=== PATIENT | female | born 1980 | race Caucasian/White ===

== ENCOUNTER → 2018-09-30 15:13 | Outpatient (CLI) | payer OTHER, SELFPAY ==
[2018-10-02 10:03] LABS: HSV 2 IgG < 0.91 index (0.00-0.90)
[2018-10-06 10:59] LABS: HPV Reflexed? NOT INDICATED
--- OUTSIDE RECORDS SUMMARY | 2018-11-16 20:40 | XMS RPT_ITS ---
:1980 Author Organization OH[facility] Care Team Providers Name Role Phone HILDA DAY (MAGGIE) Attending Unavailable VICKY HOWELL Attending Unavailable VICKY HOWELL Attending Unavailable VICKY HOWELL Referring Unavailable RUKHSANA BATISTA (PET RESORT CONCIERGE) Referring Unavailable TOMASA GEORGE Attending Unavailable HILDA DAY (ASSEMBLY MECHANIC) Attending Unavailable Verónica Sifuentes Attending Unavailable PROBLEMS PROBLEMS DATE TYPE CONDITION / CODE ATTENDING STATUS SOURCE 10/15/2018 Unknown N90.89 - Other Verónica Sifuentes Active [facility] specified [facility] disorders of vulva Repository and perineum / N90.89(ICD-10) 07/07/2018 Active Other longterm NA Active [facility] (current[facility] Main therapy / [place] Z79.899(ICD-10) Repository 07/07/2018 Active Abnormal level of NA Active [facility] blood mineral / Clinic Main R79.0(ICD-10) [place] Repository 07/07/2018 Active Encounter for NA Active [facility] screening for lipoid Clinic Main disorders / [place] Z13.220(ICD-10) Repository 06/26/2018 Active Unknown / VICKY HOWELL Active [facility] UNK(Unknown) D Clinic Main [place] Repository PROCEDURES PROCEDURES No Procedure Records FoundRESULTS RESULTS PROGRESS Observed: 10/06/2018 Status: COMPLETED Source: [place] 10:38 AM CLINIC MAIN CAMPUS REPOSITORY HNO ID: [id number] Author: Hilda Schneider) Shay Service: (none) Author Type: Nurse Specialist Type: Progress Notes Filed: 10/06/2018 10:42 AM Note Text: This note was created using [employer]. Subjective Carlota Arriola is a 38 year old woman who presents for follow-up of PDT currently using Vyvanse with good effect. No adverse effects noted. Has currently been taking 10 mg once daily in the morning. Occasionally does forget her dose. Does feel this is helping her concentration at work. Review of Systems Constitutional: Negative for activity change, appetite change, chills, diaphoresis, fatigue, fever and unexpected weight change. Respiratory: Negative for chest tightness, shortness of breath, wheezing and stridor. Cardiovascular: Negative for chest pain and palpitations. Neurological: Negative for dizziness, tremors, weakness, light-headedness and headaches. Psychiatric/Behavioral: Negative for agitation, behavioral problems, decreased concentration and sleep disturbance. The patient is not nervous/anxious. Objective BP 102/72 (BP Site: Left Arm, BP Position: Sitting, BP Cuff Size: Regular Adult) Pulse 72 Resp 16 Wt 57.2 kg (126 lb) Physical Exam Constitutional: She is oriented to person, place, and time. She appears well-developed and well-nourished. HENT: Head: Normocephalic. Eyes: Conjunctivae are normal. Cardiovascular: Normal rate, regular rhythm and normal heart sounds. Exam reveals no gallop and no friction rub. No murmur heard. Pulmonary/Chest: Effort normal and breath sounds normal. Neurological: She is alert and oriented to person, place, and time. Skin: Skin is warm and dry. Psychiatric: She has a normal mood and affect. Her behavior is normal. Judgment and thought content normal. HISTORIES FAMILY HISTORY Problem Relation Age of Onset - other (parathyroidectomy [Other]) Mother hypercalcemia - other (HTN [Other]) Father - other (depression [Other]) Father mild depression - Breast Cancer Maternal Grandmother 79 pagets: dx and 2 weeks later - other (CHF [Other]) Paternal Grandmother - other (parkinsons [Other]) Paternal Grandmother - other (DM II [Other]) Paternal Grandmother - other (Depression [Other]) Paternal Grandmother - Ischemic Heart Disease Paternal Grandfather HI - Heart Maternal Grandfather early 70's - other (mental illness [Other]) Maternal Grandfather - other (depression [Other]) Sister PAST MEDICAL HISTORY Diagnosis Date - ADD (attention deficit disorder) without hyperactivity - Anemia - Hx of migraines 2009 with 2nd aura w/visual changes/aphagia - Shingles 2011 right lower transverse back to abdomen PAST SURGICAL HISTORY Procedure Laterality Date - CHG DELIVERY 2006, 2009, 2012 - TONSILLECTOMY AND ADENOIDECTOMY HX young age Social History Marital status: Spouse name: Years of education: Number of children: Social History Main Topics Smoking status: Never Smoker Smokeless tobacco: Never Used Alcohol use: Yes Comment: occasional couple times per year; holidays. Drug use: No ALLERGIES Allergen Reactions - Percocet [Oxycodone* GI Upset - Wellbutrin [Bupropi* Hives Current Outpatient Prescriptions: Ciclopirox (PENLAC) 8 % solution Apply 1 application to affected area once daily. TO AFFECTED AREA. [START ON 12/05/2018] lisdexamfetamine (VYVANSE) 10 mg capsule Take 1-2 capsules by mouth once daily for 30 days. As directedEarliest Fill Date: 12/05/18 [START ON 11/05/2018] lisdexamfetamine (VYVANSE) 10 mg capsule Take 1-2 capsules by mouth once daily for 30 days. As directedEarliest Fill Date: 11/05/18 lisdexamfetamine (VYVANSE) 10 mg capsule Take 1-2 capsules by mouth once daily for 30 days. As directed No current facility-administered medications for this visit. Assessment and Plan 1. ADD (attention deficit disorder) without hyperactivity - ICD9: 314.00, ICD10: F98.8 Currently doing well currently doing well with once daily dose of 10 mg, no adverse effects noted at this dose. Did feel a bit jittery on the higher dose, 20 mg. Typically taking once a day. Occasional twice daily dosing. Follow-up in 3 months as scheduled. - LISDEXAMFETAMINE 10 MG CAPSULE - LISDEXAMFETAMINE 10 MG CAPSULE - LISDEXAMFETAMINE 10 MG CAPSULE Hilda Day APRN.ASSEMBLY MECHANIC October 06, 2018 CNOV Observed: 10/06/2018 Status: COMPLETED Source: [place] 10:00 AM [facility] MAIN CAMP[facility] REPOSITORY Office Visit (INTMWS) CARLOTA ARRIOLA ([id number]) 1980 F Date Time Provider Department 10/06/18 10:00 AM HILDA DAY ([facility]) INTMWS During your visit today, we recorded the following information about you: Pulse Respiration Blood pressure Weight 72/minute 16/minute 102/72 57.2 kg Hilda Day APRN.CNS 10/06/2018 10:42 AM Signed This note was created using [employer]. Subjective Carlota Arriola is a 38 year old woman who presents for follow-up of PDT currently using Vyvanse with good effect. No adverse effects noted. Has currently been taking 10 mg once daily in the morning. Occasionally does forget her dose. Does feel this is helping her concentration at work. Review of Systems Constitutional: Negative for activity change, appetite change, chills, diaphoresis, fatigue, fever and unexpected weight change. Respiratory: Negative for chest tightness, shortness of breath, wheezing and stridor. Cardiovascular: Negative for chest pain and palpitations. Neurological: Negative for dizziness, tremors, weakness, light- headedness and headaches. Psychiatric/Behavioral: Negative for agitation, behavioral problems, decreased concentration and sleep disturbance. The patient is not nervous/anxious. Objective BP 102/72 (BP Site: Left Arm, BP Position: Sitting, BP Cuff Size: Regular Adult) Pulse 72 Resp 16 Wt 57.2 kg (126 lb) Physical Exam Constitutional: She is oriented to person, place, and time. She appears well-developed and well-nourished. HENT: Head: Normocephalic. Eyes: Conjunctivae are normal. Cardiovascular: Normal rate, regular rhythm and normal heart sounds. Exam reveals no gallop and no friction rub. No murmur heard. Pulmonary/Chest: Effort normal and breath sounds normal. Neurological: She is alert and oriented to person, place, and time. Skin: Skin is warm and dry. Psychiatric: She has a normal mood and affect. Her behavior is normal. Judgment and thought content normal. HISTORIES FAMILY HISTORY Problem Relation Age of Onset - other (parathyroidectomy [Other]) Mother hypercalcemia - other (HTN [Other]) Father - other (depression [Other]) Father mild depression - Breast Cancer Maternal Grandmother 79 pagets: dx and 2 weeks later - other (CHF [Other]) Paternal Grandmother - other (parkinsons [Other]) Paternal Grandmother - other (DM II [Other]) Paternal Grandmother - other (Depression [Other]) Paternal Grandmother - Ischemic Heart Disease Paternal Grandfather HI - Heart Maternal Grandfather early 70's - other (mental illness [Other]) Maternal Grandfather - other (depression [Other]) Sister PAST MEDICAL HISTORY Diagnosis Date - ADD (attention deficit disorder) without hyperactivity - Anemia - Hx of migraines 2009 with 2nd aura w/visual changes/aphagia - Shingles 2011 right lower transverse back to abdomen PAST SURGICAL HISTORY Procedure Laterality Date - CHG DELIVERY 2006, 2009, 2012 - TONSILLECTOMY AND ADENOIDECTOMY HX young age Social History Marital status: Spouse name: Years of education: Number of children: Social History Main Topics Smoking status: Never Smoker Smokeless tobacco: Never Used Alcohol use: Yes Comment: occasional couple times per year; holidays. Drug use: No ALLERGIES Allergen Reactions - Percocet [Oxycodone* GI Upset - Wellbutrin [Bupropi* Hives Current Outpatient Prescriptions: Ciclopirox (PENLAC) 8 % solution Apply 1 application to affected area once daily. TO AFFECTED AREA. [START ON 12/05/2018] lisdexamfetamine (VYVANSE) 10 mg capsule Take 1-2 capsules by mouth once daily for 30 days. As directedEarliest Fill Date: 12/05/18 [START ON 11/05/2018] lisdexamfetamine (VYVANSE) 10 mg capsule Take 1-2 capsules by mouth once daily for 30 days. As directedEarliest Fill Date: 11/05/18 lisdexamfetamine (VYVANSE) 10 mg capsule Take 1-2 capsules by mouth once daily for 30 days. As directed No current facility-administered medications for this visit. Assessment and Plan 1. ADD (attention deficit disorder) without hyperactivity - ICD9: 314.00, ICD10: F98.8 Currently doing well currently doing well with once daily dose of 10 mg, no adverse effects noted at this dose. Did feel a bit jittery on the higher dose, 20 mg. Typically taking once a day. Occasional twice daily dosing. Follow-up in 3 months as scheduled. - LISDEXAMFETAMINE 10 MG CAPSULE - LISDEXAMFETAMINE 10 MG CAPSULE - LISDEXAMFETAMINE 10 MG CAPSULE Hilda Day APRN.ASSEMBLY MECHANIC October 06, 2018 Referring Provider: SELF [200] Allergies As of Date: 10/06/2018 Noted Allergy Reaction PERCOCET (OXYCODONE-ACETAMINOPHEN)11/15/2016 8 - GI Upset WELLBUTRIN (BUPROPION HCL) 12/13/2016 4 - Hives Date Reviewed: 10/06/2018 Reviewed by: Amanda Bills LPN - Fully Assessed Reason for Visit: Medication Follow-up [270] Visit Diagnosis:ADD (attention deficit disorder) without hyperactivity [F98.8] Order(s):Ciclopirox (PENLAC) 8 % solutionApply 1 application to affected area once daily. TO AFFECTED AREA.Disp: 1 BottleRfl: 3 [START ON 12/05/2018] lisdexamfetamine (VYVANSE) 10 mg capsuleTake 1-2 capsules by mouth once daily for 30 days. As directed Earliest Fill Date: 12/05/18Disp: 60 capsuleRfl: 0 [START ON 11/05/2018] lisdexamfetamine (VYVANSE) 10 mg capsuleTake 1-2 capsules by mouth once daily for 30 days. As directed Earliest Fill Date: 11/05/18Disp: 60 capsuleRfl: 0 lisdexamfetamine (VYVANSE) 10 mg capsuleTake 1-2 capsules by mouth once daily for 30 days. As directedDisp: 60 capsuleRfl: 0 Prescriptions as of 10/06/2018 Sig: CICLOPIROX 8 % TOPICAL SOLUTI* Apply 1 application to affect* LISDEXAMFETAMINE 10 MG CAPSULE Take 1-2 capsules by mouth on* LISDEXAMFETAMINE 10 MG CAPSULE Take 1-2 capsules by mouth on* LISDEXAMFETAMINE 10 MG CAPSULE Take 1-2 capsules by mouth on* Problem List As Of Date 10/06/2018 Noted Resolved Anxiety [F41.9] INVALID FOR* Migraines [G43.909] INVALID FOR* ADD (attention deficit disorder) without hypera* Prescriptions ordered this encounter Disp Refills Start End CICLOPIROX 8 % TOPICAL SOLUTION 1 [employer]* 3 10/06/2018 Route: TOPICAL Sig: Apply 1 application to affected area once daily. TO AFFECTED AREA. LISDEXAMFETAMINE 10 MG CAPSULE 60 c* 0 12/05/2018 01/04/2019 Class: Print RX Route: ORAL Sig: Take 1-2 capsules by mouth once daily for 30 days. As directed Earliest Fill Date: 12/05/18 LISDEXAMFETAMINE 10 MG CAPSULE 60 c* 0 11/05/2018 12/05/2018 Class: Print RX Route: ORAL Sig: Take 1-2 capsules by mouth once daily for 30 days. As directed Earliest Fill Date: 11/05/18 LISDEXAMFETAMINE 10 MG CAPSULE 60 c* 0 10/06/2018 11/05/2018 Class: Print RX Route: ORAL Sig: Take 1-2 capsules by mouth once daily for 30 days. As directed Medications Discontinued During This Encounter lisdexamfetamine (VYVANSE) 20 mg cap* 30 c* 0 05/04/2018 10/06/2018 Class: Print RX Route: ORAL Sig: Take 1 capsule by mouth once daily for 30 days. May fill on or after 06/01/2017 Earliest Fill Date: 05/04/18 Disc: Reason for discontinue is not on file. lisdexamfetamine (VYVANSE) 20 mg cap* 30 c* 0 04/03/2018 10/06/2018 Class: Print RX Route: ORAL Sig: Take 1 capsule by mouth once daily for 30 days. Earliest Fill Date: 04/03/18 Disc: Reason for discontinue is not on file. lisdexamfetamine (VYVANSE) 20 mg cap* 30 c* 0 03/03/2018 10/06/2018 Class: Print RX Route: ORAL Sig: Take 1 capsule by mouth once daily for 30 days. Disc: Reason for discontinue is not on file. Ciclopirox (PENLAC) 8 % solution 1 [employer]* 3 09/01/2018 10/06/2018 Route: TOPICAL Sig: Apply 1 application to affected area once daily. TO AFFECTED AREA. Disc: Reason for discontinue is not on file. lisdexamfetamine (VYVANSE) 10 mg cap* 60 c* 0 07/07/2018 10/06/2018 Class: Print RX Route: ORAL Sig: Take 1-2 capsules by mouth once daily for 30 days. As directed Disc: Reason for discontinue is not on file. lisdexamfetamine (VYVANSE) 10 mg cap* 60 c* 0 08/06/2018 10/06/2018 Class: Print RX Route: ORAL Sig: Take 1-2 capsules by mouth once daily for 30 days. As directed Earliest Fill Date: 08/06/18 Disc: Reason for discontinue is not on file. lisdexamfetamine (VYVANSE) 10 mg cap* 60 c* 0 09/05/2018 10/06/2018 Class: Print RX Route: ORAL Sig: Take 1-2 capsules by mouth once daily for 30 days. As directed Earliest Fill Date: 09/05/18 Disc: Reason for discontinue is not on file. Encounter Status:Closed by HILDA MÉNDEZ on 10/06/18 HSV 1 AND 2 IGG Collected: 09/30/2018 Status: F Source: [place] 3:19 PM [facility] REPOSITORY TYPE CODE TESTS RESULT OUT OF RANGE REFERENCE UNITS LAB L3400.1620 0.00-0.90 index High HSV 1 IgG 17.20 Result Comment: Negative <0.91 Equivocal 0.91 - 1.09 Positive >1.09 Note: Negative indicates no antibodies detected to HSV-1. Equivocal may suggest early infection. If clinically appropriate, retest at later date. Positive indicates antibodies detected to HSV-1. LAB L3400.1630 0.00-0.90 index Normal < HSV 2 IgG 0.91 Result Comment: Negative <0.91 Equivocal 0.91 - 1.09 Positive >1.09 Note: Negative indicates no antibodies detected to HSV-2. Equivocal may suggest early infection. If clinically appropriate, retest at later date. Positive indicates antibodies detected to HSV-2. Performed at: - [facility] [address] [id number] [employer] Department Manager: Anthony Ramires PhD, Phone: [phone] Performed By: #### L3400.1610 #### [facility] (refer to report for specific site) refer to report for address and phone number MISCELLANEOUS LAB Collected: 09/30/2018 Status: F Source: [place] PROCEDURE 3:19 PM [facility] REPOSITORY Order Comment: Comments: #[id number] HSV 1 AND 2 IGM, SERUM Test(s) Ordered: #[id number] HSV 1 AND 2 IGM, SERUM TYPE CODE TESTS RESULT OUT OF RANGE REFERENCE UNITS LAB L801.1541 Normal [facility] TEST Result Comment: TEST RESULT LIMITS HSV, IgM I/II Combination 1.46 High Ratio 0.00 - 0.90 Negative <0.91 Equivocal 0.91 - 1.09 Positive >1.09 TESTING PERFORMED AT [facility]. ORIGINAL REPORT ON FILE IN LAB CONTAINS ADDITIONAL TEST SITE INFORMATION. Performed By: #### L801.1541 #### [facility] [address] [place], [address] PAP I-G W/RFX HRHPV Collected: 09/30/2018 Status: F Source: [place] 2:30 PM [facility] REPOSITORY Order Comment: CYTOLOGY INFORMATION: - CLINICAL INFORMATION: - DATE LMP/MENOPAUSE: 09/16/18 LMP - COLLECTION VIAL: Thin Prep Vial - CANOE BUILDER SOURCE: CERVICAL/ENDOCERVICAL - COLLECTION TECHNIQUE: BRUSH/SPATULA Specimen Comment: [id number] Specimen Comment: Source.............Cervix;Endocervix Specimen Comment: LMP / Prev Treat...[id number] Specimen Comment: No. of containers..01 ThinPrep Vial TYPE CODE TESTS RESULT OUT OF RANGE REFERENCE UNITS LAB L7400.0800 . Normal DIAGN Comment Result Comment: NEGATIVE FOR INTRAEPITHELIAL LESION AND MALIGNANCY. LAB L7400.0900 . Normal ADEQ Comment Result Comment: Satisfactory for evaluation. Endocervical and/or squamous metaplastic cells (endocervical component) are present. LAB L7400.1400 . Normal PERFORM Comment Result Comment: Sabiha Gonsales Ruby Developer (ASCP) LAB L7400.2575 . Normal TEST METHOD Comment Result Comment: This liquid based ThinPrep(R) pap test was screened with the use of an image guided system. LAB L7400.2600 . Normal . COMM LAB L7400.2700 . Normal PAPSMR Comment Result Comment: The Pap smear is a screening test designed to aid in the detection of premalignant and malignant conditions of the uterine cervix. It is not a diagnostic procedure and should not be used as the sole means of detecting cervical cancer. Both false-positive and false-negative reports do occur. LAB L7400.2800 . Normal HPV RFLX Comment Result Comment: The HPV DNA reflex criteria were not met with this specimen result therefore, no HPV testing was performed. Performed at: [facility] [address] [id number] [employer] Department Manager: Nicolasa Guerrero MD, Phone: [phone] Performed By: #### L7400.0350 #### [facility] (refer to report for specific site) refer to report for address and phone number Observed: 09/01/2018 Status: F Source: [place] [facility]STAN CUL HAIR SKN 9:59 AM [facility] NLS REPOSITORY Culture Result - No Fungus isolated after 28 days Performed By: #### ACFSC #### [facility] [address] [id number] PROGRESS Observed: 09/01/2018 Status: COMPLETED Source: [place] 9:45 AM [facility] REPOSITORY HNO ID: [id number] Author: Tomasa George Service: (none) Author Type: Physician Type: Progress Notes Filed: 09/01/2018 1:28 PM Note Text: Initial Podiatric Office Visit: Chief Complaint: This 38 year old female who presents for evaluation of right 5th toe HPI Patient presents to clinic for evaluation of right 5th toe One month ago while working, she was experiencing pain of right 5th toe. She presented to urgent care and was informed that she could have bacterial infection of right 5th toe vs gout. She was prescribed keflex. The pain eventually subsided. Last week, the right 5th toenail fell off. She has no pain. She has no open sores. She is here to discuss issues with this right 5th toe. PAIN EVALUATION No data found. No results found for: HBA1C PCP: Vicky Howell MD PAST MEDICAL HISTORY Diagnosis Date - ADD (attention deficit disorder) without hyperactivity - Anemia - Hx of migraines 2009 with 2nd aura w/visual changes/aphagia - Shingles 2011 right lower transverse back to abdomen Current Outpatient Prescriptions: lisdexamfetamine (VYVANSE) 10 mg capsule Take 1-2 capsules by mouth once daily for 30 days. As directed lisdexamfetamine (VYVANSE) 10 mg capsule Take 1-2 capsules by mouth once daily for 30 days. As directedEarliest Fill Date: 08/06/18 [START ON 09/05/2018] lisdexamfetamine (VYVANSE) 10 mg capsule Take 1-2 capsules by mouth once daily for 30 days. As directedEarliest Fill Date: 09/05/18 lisdexamfetamine (VYVANSE) 20 mg capsule Take 1 capsule by mouth once daily for 30 days. lisdexamfetamine (VYVANSE) 20 mg capsule Take 1 capsule by mouth once daily for 30 days.Earliest Fill Date: 04/03/18 lisdexamfetamine (VYVANSE) 20 mg capsule Take 1 capsule by mouth once daily for 30 days. May fill on or after 06/01/2017Earliest Fill Date: 05/04/18 No current facility-administered medications for this visit. ALLERGIES Allergen Reactions - Percocet [Oxycodone* GI Upset - Wellbutrin [Bupropi* Hives PAST SURGICAL HISTORY Procedure Laterality Date - [facility] DELIVERY 2006, 2009, 2012 - TONSILLECTOMY AND ADENOIDECTOMY HX young age FAMILY HISTORY Problem Relation Age of Onset - other (parathyroidectomy [Other]) Mother hypercalcemia - other (HTN [Other]) Father - other (depression [Other]) Father mild depression - Breast Cancer Maternal Grandmother 79 pagets: dx and 2 weeks later - other (CHF [Other]) Paternal Grandmother - other (parkinsons [Other]) Paternal Grandmother - other (DM II [Other]) Paternal Grandmother - other (Depression [Other]) Paternal Grandmother - Ischemic Heart Disease Paternal Grandfather HI - Heart Maternal Grandfather early 70's - other (mental illness [Other]) Maternal Grandfather - other (depression [Other]) Sister Social History Marital status: Spouse name: Years of education: Number of children: Social History Main Topics Smoking status: Never Smoker Smokeless tobacco: Never Used Alcohol use: Yes Comment: occasional couple times per year; holidays. Drug use: No REVIEW OF SYSTEMS GENERAL: Negative for Malaise, significant weight loss, fever RESPIRATORY: Negative for cough, wheezing and shortness of breath CARDIOVASCULAR: Negative for chest pain, leg swelling and palpitations GI: Negative for abdominal discomfort, blood in stools or black stools and change in bowel habits : Negative for dysuria, frequency and incontinence MUSCULOSKELETAL: Negative for joint pain or swelling, back pain, and muscle pain. SKIN: Negative for lesions, rash, and itching. HEMATOLOGY/LYMPHOLOGY Negative for prolonged bleeding, bruising easily, and swollen nodes. ENDOCRINE: Negative for cold or heat intolerance, polyuria, polydipsia and goiter. NEURO: negative Physical Exam: Constitutional: Pt is a well developed 38 year old female who is alert, oriented and cooperative Eyes: Following during examination. No redness or drainage. Respiratory: RR normal and nonlabored. Even breathing. No evidence of distress or shortness of breath. Psychology: Patient is engaged during conversation. Normal affect and mood. Does not appear depressed or anxious during encounter. Vascular: Dorsalis pedis and posterior tibial pulses palpable as b/l Capillary Fill time < 5 seconds to digits 1-5 b/l Skin temperature warm to warm proximal to distal b/l Hair growth present to digits Neurological: intact light touch/epicritic sensation b/l intact protective sensation no significant neurological deficits Dermatological: Nails 1-5 left and 1-4 right appear discolored. Right 5th toenail is avulsed. No signs of infection are present b/l. Webspaces clean and dry 1-4 b/l. Skin appears well hydrated and supple. good color, texture, turgor. No open lesions present. No callosities present. Musculoskeletal/Orthopaedic: Patient has no pain to palpation of b/l feet Foot type is neutral structurally AJ ROM is full with knee extended and flexed 1st MPJ is full when loaded and no pain or crepitus are noted with ROM. MTJ, STJ are full and free of pain and crepitus. +5/5 muscle strength dorsiflexion, plantarflexion, inversion, eversion b/l Flexible hammertoe is noted of b/l 5th toe Radiographs: 3 views right foot ordered September 01, 2018: I have personally reviewed and interpreted these XR myself: No acute fracture ASSESSMENT: (M20.41, M20.42) Hammer toes of both feet (primary encounter diagnosis) (B35.1) Onychomycosis PLAN: 1. History and physical examination performed. 2. XR reviewed with patient and interpreted today 3. Discussed possible source of pain of 5th toe from hammertoe. Hammertoe present to b/l 5th toe, is flexible in presentation. No pain currently. If pain returns, consider toe spacer, wider shoes or even flexor tenotomy to make rectus her toe. 4. A review of the patient's PMH and Podiatric physical exam was completed. We discussed the possible etiologies of discolored, dystrophic, and thickened nails including fungus, yeast, mold as well as in some instances, prior trauma, or mechanical causes such as repetitive microtrauma in shoe gear. We discussed topical medication for discolored toenails which has very low success but no major side effects. We discussed oral medication. Patient will need hepatic testing prior to use. Patient informed of risks associated with Lamisil. We discussed removal of toenails. Patient would like to proceed with [facility]. Nail debridement of left 5th toe and juaquin will be sent 5. F/u prn. TIAGO aWrd Observed: 09/01/2018 Status: COMPLETED Source: [place] 9:25 AM [facility] REPOSITORY Office Visit (PODIWS) CARLOTA ARRIOLA ([id number]) 1980 F Date Time Provider Department 09/01/18 9:25 AM TOMASA GEORGE During your visit today, we recorded the following information about you: Tomasa TIAGO George 09/01/2018 1:28 PM Signed Initial Podiatric Office Visit: Chief Complaint: This 38 year old female who presents for evaluation of right 5th toe HPI Patient presents to clinic for evaluation of right 5th toe One month ago while working, she was experiencing pain of right 5th toe. She presented to urgent care and was informed that she could have bacterial infection of right 5th toe vs gout. She was prescribed keflex. The pain eventually subsided. Last week, the right 5th toenail fell off. She has no pain. She has no open sores. She is here to discuss issues with this right 5th toe. PAIN EVALUATION No data found. No results found for: HBA1C PCP: Vicky Howell MD PAST MEDICAL HISTORY Diagnosis Date - ADD (attention deficit disorder) without hyperactivity - Anemia - Hx of migraines 2009 with 2nd aura w/visual changes/aphagia - Shingles 2011 right lower transverse back to abdomen Current Outpatient Prescriptions: lisdexamfetamine (VYVANSE) 10 mg capsule Take 1-2 capsules by mouth once daily for 30 days. As directed lisdexamfetamine (VYVANSE) 10 mg capsule Take 1-2 capsules by mouth once daily for 30 days. As directedEarliest Fill Date: 08/06/18 [START ON 09/05/2018] lisdexamfetamine (VYVANSE) 10 mg capsule Take 1-2 capsules by mouth once daily for 30 days. As directedEarliest Fill Date: 09/05/18 lisdexamfetamine (VYVANSE) 20 mg capsule Take 1 capsule by mouth once daily for 30 days. lisdexamfetamine (VYVANSE) 20 mg capsule Take 1 capsule by mouth once daily for 30 days.Earliest Fill Date: 04/03/18 lisdexamfetamine (VYVANSE) 20 mg capsule Take 1 capsule by mouth once daily for 30 days. May fill on or after 06/01/2017Earliest Fill Date: 05/04/18 No current facility-administered medications for this visit. ALLERGIES Allergen Reactions - Percocet [Oxycodone* GI Upset - Wellbutrin [Bupropi* Hives PAST SURGICAL HISTORY Procedure Laterality Date - CHG DELIVERY 2006, 2009, 2012 - TONSILLECTOMY AND ADENOIDECTOMY HX young age FAMILY HISTORY Problem Relation Age of Onset - other (parathyroidectomy [Other]) Mother hypercalcemia - other (HTN [Other]) Father - other (depression [Other]) Father mild depression - Breast Cancer Maternal Grandmother 79 pagets: dx and 2 weeks later - other (CHF [Other]) Paternal Grandmother - other (parkinsons [Other]) Paternal Grandmother - other (DM II [Other]) Paternal Grandmother - other (Depression [Other]) Paternal Grandmother - Ischemic Heart Disease Paternal Grandfather HI - Heart Maternal Grandfather early 70's - other (mental illness [Other]) Maternal Grandfather - other (depression [Other]) Sister Social History Marital status: Spouse name: Years of education: Number of children: Social History Main Topics Smoking status: Never Smoker Smokeless tobacco: Never Used Alcohol use: Yes Comment: occasional couple times per year; holidays. Drug use: No REVIEW OF SYSTEMS GENERAL: Negative for Malaise, significant weight loss, fever RESPIRATORY: Negative for cough, wheezing and shortness of breath CARDIOVASCULAR: Negative for chest pain, leg swelling and palpitations GI: Negative for abdominal discomfort, blood in stools or black stools and change in bowel habits : Negative for dysuria, frequency and incontinence MUSCULOSKELETAL: Negative for joint pain or swelling, back pain, and muscle pain. SKIN: Negative for lesions, rash, and itching. HEMATOLOGY/LYMPHOLOGY Negative for prolonged bleeding, bruising easily, and swollen nodes. ENDOCRINE: Negative for cold or heat intolerance, polyuria, polydipsia and goiter. NEURO: negative Physical Exam: Constitutional: Pt is a well developed 38 year old female who is alert, oriented and cooperative Eyes: Following during examination. No redness or drainage. Respiratory: RR normal and nonlabored. Even breathing. No evidence of distress or shortness of breath. Psychology: Patient is engaged during conversation. Normal affect and mood. Does not appear depressed or anxious during encounter. Vascular: Dorsalis pedis and posterior tibial pulses palpable as b/l Capillary Fill time < 5 seconds to digits 1-5 b/l Skin temperature warm to warm proximal to distal b/l Hair growth present to digits Neurological: intact light touch/epicritic sensation b/l intact protective sensation no significant neurological deficits Dermatological: Nails 1-5 left and 1-4 right appear discolored. Right 5th toenail is avulsed. No signs of infection are present b/l. Webspaces clean and dry 1-4 b/l. Skin appears well hydrated and supple. good color, texture, turgor. No open lesions present. No callosities present. Musculoskeletal/Orthopaedic: Patient has no pain to palpation of b/l feet Foot type is neutral structurally AJ ROM is full with knee extended and flexed 1st MPJ is full when loaded and no pain or crepitus are noted with ROM. MTJ, STJ are full and free of pain and crepitus. +5/5 muscle strength dorsiflexion, plantarflexion, inversion, eversion b/l Flexible hammertoe is noted of b/l 5th toe Radiographs: 3 views right foot ordered September 01, 2018: I have personally reviewed and interpreted these XR myself: No acute fracture ASSESSMENT: (M20.41, M20.42) Hammer toes of both feet (primary encounter diagnosis) (B35.1) Onychomycosis PLAN: 1. History and physical examination performed. 2. XR reviewed with patient and interpreted today 3. Discussed possible source of pain of 5th toe from hammertoe. Hammertoe present to b/l 5th toe, is flexible in presentation. No pain currently. If pain returns, consider toe spacer, wider shoes or even flexor tenotomy to make rectus her toe. 4. A review of the patient's PMH and Podiatric physical exam was completed. We discussed the possible etiologies of discolored, dystrophic, and thickened nails including fungus, yeast, mold as well as in some instances, prior trauma, or mechanical causes such as repetitive microtrauma in shoe gear. We discussed topical medication for discolored toenails which has very low success but no major side effects. We discussed oral medication. Patient will need hepatic testing prior to use. Patient informed of risks associated with Lamisil. We discussed removal of toenails. Patient would like to proceed with penlac. Nail debridement of left 5th toe and juaquin will be sent 5. F/u prn. TIAGO Ward RN 09/01/2018 10:06 AM Signed Penlac/Loprox (ciclopirox 8% solution) Nail Lacquer Instructions Apply the medication to toenails each night for 7 nights, making sure to to apply evenly over the entire nail. Allow to dry (about 30 seconds). On the 8th night, remove with rubbing alcohol or nail niuean remover (acetone works best). After removing, apply new coat of medication and repeat process. Full treatment time consists of daily application for about 48 weeks. It may take up to 6 months before you see any visible improvement in your nail(s). If you notice increased redness, itching, burning, blistering, swelling, or oozing; be sure to notify Dr. George's office. If you have any questions, call your pharmacy or Dr. George's office. We will call you with the results of your nail culture Referring Provider: SELF [[id number]] Allergies As of Date: 09/01/2018 Noted Allergy Reaction PERCOCET (OXYCODONE-ACETAMINOPHEN)11/15/2016 8 - GI Upset WELLBUTRIN (BUPROPION HCL) 12/13/2016 4 - Hives Date Reviewed: 09/01/2018 Reviewed by: Eloisa Razo Ma - Fully Assessed Reason for Visit: New Patient [172] right 5th toe pain [Other] Primary Visit Diagnosis:Hammer toes of both feet [M20.41, M20.42] Other Visit Diagnosis:Onychomycosis [B35.1] Order(s):FUNGAL CULTURE HAIR,SKIN,NAILS [[facility]] Order #: [id number] Ciclopirox (PENLAC) 8 % solutionApply 1 application to affected area once daily. TO AFFECTED AREA.Disp: 1 BottleRfl: 3 Prescriptions as of 09/01/2018 Sig: CICLOPIROX 8 % TOPICAL SOLUTI* Apply 1 application to affect* LISDEXAMFETAMINE 10 MG CAPSULE Take 1-2 capsules by mouth on* LISDEXAMFETAMINE 10 MG CAPSULE Take 1-2 capsules by mouth on* LISDEXAMFETAMINE 10 MG CAPSULE Take 1-2 capsules by mouth on* LISDEXAMFETAMINE 20 MG CAPSULE Take 1 capsule by mouth once * LISDEXAMFETAMINE 20 MG CAPSULE Take 1 capsule by mouth once * LISDEXAMFETAMINE 20 MG CAPSULE Take 1 capsule by mouth once * Problem List As Of Date 09/01/2018 Noted Resolved Anxiety [F41.9] INVALID FOR* Migraines [G43.909] INVALID FOR* ADD (attention deficit disorder) without hypera* Other instructions from your clinician: Penlac/Loprox (ciclopirox 8% solution) Nail Lacquer Instructions Apply the medication to toenails each night for 7 nights, making sure to to apply evenly over the entire nail. Allow to dry (about 30 seconds). On the 8th night, remove with rubbing alcohol or nail niuean remover (acetone works best). After removing, apply new coat of medication and repeat process. Full treatment time consists of daily application for about 48 weeks. It may take up to 6 months before you see any visible improvement in your nail(s). If you notice increased redness, itching, burning, blistering, swelling, or oozing; be sure to notify Dr. George's office. If you have any questions, call your pharmacy or Dr. George's office. We will call you with the results of your nail culture Prescriptions ordered this encounter Disp Refills Start End CICLOPIROX 8 % TOPICAL SOLUTION 1 [employer]qu[employer]* 3 09/01/2018 Route: TOPICAL Sig: Apply 1 application to affected area once daily. TO AFFECTED AREA. Disposition: Return if symptoms worsen or fail to improve. Follow-up and Disposition History Recorded Encounter Status:Closed by TOMASA GEORGE DPM on 09/01/18 XR FOOT 3V AP/LAT/OBL Observed: 08/07/2018 Status: F Source: [place] RT 3:45 PM [facility] REPOSITORY * * *Final Report* * * DATE OF EXAM: Aug 07 2018 3:45PM WOX [id number] - XR FOOT 3V AP/LAT/OBL RT / PROCEDURE REASON: Foot pain, right * * * * Physician Interpretation * * * * Right foot-weight bearing History: Right fifth toe injury Findings: Three views of the foot including weight-bearing AP and lateral views were obtained. No fracture bony destruction is noted. Joint spaces appear maintained. Evaluation of the toes is limited by overlap on the lateral radiograph. IMPRESSION: Unremarkable study Telecommunications Network Engineer: GUICHO Transcribe Date/Time: Aug 07 2018 3:48P Dictated by : FILIPE JOLLEY MD This examination was interpreted and the report reviewed and electronically signed by: FILIPE JOLLEY MD on Aug 07 2018 3:50PM EST [id number] PROGRESS Observed: 08/07/2018 Status: COMPLETED Source: [place] 3:35 PM [facility] REPOSITORY HNO ID: [id number] Author: Zaida Cabral (Rt) Yomi Avery Service: (none) Author Type: Proposal Lead Writer Type: Progress Notes Filed: 08/07/2018 3:45 PM Note Text: Radiology Service Progress Note PATIENT NAME: Carlota Arriola DATE OF SERVICE: August 07, 2018 TIME: 3:35 PM PATIENT IDENTITY VERIFICATION COMPLETED USING TWO (2) METHODS: Patient confirmed name verbally and Date of . PATIENT GENDER DATA: Female. status: : No status: NO. PATIENT RELEVANT IMPLANT DATA REVIEWED: Not Applicable RADIOLOGY DEPARTMENT: General X-ray: Exam(s) Completed: Lower Extremity X-Ray(s): Foot, Right: PERIPHERAL IV DATA: Not applicable SIGNED BY: RT Juan Antonio August 07, 2018 3:35 PM PROGRESS Observed: 08/07/2018 Status: COMPLETED Source: [place] 3:34 PM [facility] REPOSITORY HNO ID: [id number] Author: Rukhsana Batista Service: (none) Author Type: Nurse Practitioner Type: Progress Notes Filed: 08/07/2018 4:10 PM Note Text: Subjective The history is provided by the patient. No paraprofessional interpreter was used. HPI Carlota Arriola is a 38 year old female who presents today for CC of right pinky toe pain. Onset/Duration: today Alleviating/Treatment: No medications or treatment today. Aggravating: Pressure on toe Risk factors: No known trauma or injury. H/o nail fungal infection. BP 100/60 Pulse 77 Temp 36.1 ?C (97 ?F) (Left Tympanic) Resp 16 Wt 55.3 kg (122 lb) ALLERGIES Allergen Reactions - Percocet [Oxycodone* GI Upset - Wellbutrin [Bupropi* Hives ACTIVE PROBLEM LIST Anxiety Migraines Add (Attention Deficit Disorder) Without Hyperactivity Family History Problem Relation Age of Onset - other (parathyroidectomy [Other]) Mother hypercalcemia - other (HTN [Other]) Father - other (depression [Other]) Father mild depression - Breast Cancer Maternal Grandmother 79 pagets: dx and 2 weeks later - other (CHF [Other]) Paternal Grandmother - other (parkinsons [Other]) Paternal Grandmother - other (DM II [Other]) Paternal Grandmother - other (Depression [Other]) Paternal Grandmother - Ischemic Heart Disease Paternal Grandfather HI - Heart Maternal Grandfather early 70's - other (mental illness [Other]) Maternal Grandfather - other (depression [Other]) Sister Social History Marital status: Spouse name: Years of education: Number of children: Social History Main Topics Smoking status: Never Smoker Smokeless tobacco: Never Used Alcohol use: Yes Comment: occasional couple times per year; holidays. Drug use: No PAST MEDICAL HISTORY Diagnosis Date - ADD (attention deficit disorder) without hyperactivity - Anemia - Hx of migraines 2009 with 2nd aura w/visual changes/aphagia - Shingles 2011 right lower transverse back to abdomen Review of Systems Constitutional: Negative for chills, fever and malaise/fatigue. Musculoskeletal: Positive for joint pain (right pinky toe). Negative for myalgias. Skin: Negative for rash. Neurological: Negative for tingling and headaches. Objective Physical Exam Constitutional: She is oriented to person, place, and time and well-developed, well-nourished, and in no distress. No distress. HENT: Head: Normocephalic and atraumatic. Eyes: Pupils are equal, round, and reactive to light. Conjunctivae and EOM are normal. Neck: Normal range of motion. Neck supple. Pulmonary/Chest: Effort normal. Musculoskeletal: Right shoulder: She exhibits tenderness, bony tenderness and swelling. She exhibits normal range of motion, no effusion, no crepitus, no deformity, no laceration, no pain, no spasm, normal pulse and normal strength. Right foot: There is tenderness, bony tenderness and swelling. There is normal range of motion, normal capillary refill, no crepitus, no deformity and no laceration. Feet: Neurological: She is alert and oriented to person, place, and time. Skin: Skin is warm and dry. Psychiatric: Affect normal. Nursing note and vitals reviewed. ASSESSMENT/PLAN: 1. Foot pain, right - ICD9: 729.5, ICD10: M79.671 Differential diagnosis paronychia, gout, injury REST: Rest the area as much as possible. ICE: Apply ice for 15 minutes every hour. Do not apply ice directly to the skin. Cover the area with a thin towel or clothing and apply the ice on top of that. ELEVATE: Elevate the area as much as possible to control swelling. See your doctor if not improving Tylenol (generic acetaminophen) 500 mg-2 tabs every 8 hrs. as needed for fever and aches Ibuprofen 600 mg (3-200mg tablets) every 6 hours Keflex 500 mg tid for 7 days Follow up with PCP or Dr. George for any further problems, or ER if suddenly worsening - XR FOOT GENERAL 3V AP/LAT/OBL RT - interpreted by FILIPE JOLLEY MD Findings: Three views of the foot including weight-bearing AP and lateral views were obtained. No fracture bony destruction is noted. Joint spaces appear maintained. Evaluation of the toes is limited by overlap on the lateral radiograph. Impression IMPRESSION: Unremarkable study Diagnosis and treatment plan were discussed and questions were answered to the patient's satisfaction. Pt acknowledged understanding of concepts and follow up plan. Specific signs and symptoms that would indicate the need for higher level of care were discussed in detail warranting prompt ER evaluation. Rukhsana Batista APRN.CNP CNOV Observed: 08/07/2018 Status: COMPLETED Source: [place] 3:15 PM [facility] REPOSITORY Office Visit (WSTR) FLAKOCARLOTA ([id number]) 1980 F Date Time Provider Department 08/07/18 3:15 PM RUKHSANA BATISTA (RIGOBERTO) [facility] During your visit today, we recorded the following information about you: Temperature Pulse Respiration Blood pressure 97 degrees 77/minute 16/minute 100/60 Weight 55.3 kg Rukhsana Batista APRN.CNP 08/07/2018 4:10 PM Signed Subjective The history is provided by the patient. No paraprofessional interpreter was used. HPI Carlota Arriola is a 38 year old female who presents today for CC of right pinky toe pain. Onset/Duration: today Alleviating/Treatment: No medications or treatment today. Aggravating: Pressure on toe Risk factors: No known trauma or injury. H/o nail fungal infection. BP 100/60 Pulse 77 Temp 36.1 ?C (97 ?F) (Left Tympanic) Resp 16 Wt 55.3 kg (122 lb) ALLERGIES Allergen Reactions - Percocet [Oxycodone* GI Upset - Wellbutrin [Bupropi* Hives ACTIVE PROBLEM LIST Anxiety Migraines Add (Attention Deficit Disorder) Without Hyperactivity Family History Problem Relation Age of Onset - other (parathyroidectomy [Other]) Mother hypercalcemia - other (HTN [Other]) Father - other (depression [Other]) Father mild depression - Breast Cancer Maternal Grandmother 79 pagets: dx and 2 weeks later - other (CHF [Other]) Paternal Grandmother - other (parkinsons [Other]) Paternal Grandmother - other (DM II [Other]) Paternal Grandmother - other (Depression [Other]) Paternal Grandmother - Ischemic Heart Disease Paternal Grandfather HI - Heart Maternal Grandfather early 70's - other (mental illness [Other]) Maternal Grandfather - other (depression [Other]) Sister Social History Marital status: Spouse name: Years of education: Number of children: Social History Main Topics Smoking status: Never Smoker Smokeless tobacco: Never Used Alcohol use: Yes Comment: occasional couple times per year; holidays. Drug use: No PAST MEDICAL HISTORY Diagnosis Date - ADD (attention deficit disorder) without hyperactivity - Anemia - Hx of migraines 2009 with 2nd aura w/visual changes/aphagia - Shingles 2011 right lower transverse back to abdomen Review of Systems Constitutional: Negative for chills, fever and malaise/fatigue. Musculoskeletal: Positive for joint pain (right pinky toe). Negative for myalgias. Skin: Negative for rash. Neurological: Negative for tingling and headaches. Objective Physical Exam Constitutional: She is oriented to person, place, and time and well-developed, well-nourished, and in no distress. No distress. HENT: Head: Normocephalic and atraumatic. Eyes: Pupils are equal, round, and reactive to light. Conjunctivae and EOM are normal. Neck: Normal range of motion. Neck supple. Pulmonary/Chest: Effort normal. Musculoskeletal: Right shoulder: She exhibits tenderness, bony tenderness and swelling. She exhibits normal range of motion, no effusion, no crepitus, no deformity, no laceration, no pain, no spasm, normal pulse and normal strength. Right foot: There is tenderness, bony tenderness and swelling. There is normal range of motion, normal capillary refill, no crepitus, no deformity and no laceration. Feet: Neurological: She is alert and oriented to person, place, and time. Skin: Skin is warm and dry. Psychiatric: Affect normal. Nursing note and vitals reviewed. ASSESSMENT/PLAN: 1. Foot pain, right - ICD9: 729.5, ICD10: M79.671 Differential diagnosis paronychia, gout, injury REST: Rest the area as much as possible. ICE: Apply ice for 15 minutes every hour. Do not apply ice directly to the skin. Cover the area with a thin towel or clothing and apply the ice on top of that. ELEVATE: Elevate the area as much as possible to control swelling. See your doctor if not improving Tylenol (generic acetaminophen) 500 mg-2 tabs every 8 hrs. as needed for fever and aches Ibuprofen 600 mg (3-200mg tablets) every 6 hours Keflex 500 mg tid for 7 days Follow up with PCP or Dr. George for any further problems, or ER if suddenly worsening - XR FOOT GENERAL 3V AP/LAT/OBL RT - interpreted by FILIPE JOLLEY MD Findings: Three views of the foot including weight-bearing AP and lateral views were obtained. No fracture bony destruction is noted. Joint spaces appear maintained. Evaluation of the toes is limited by overlap on the lateral radiograph. Impression IMPRESSION: Unremarkable study Diagnosis and treatment plan were discussed and questions were answered to the patient's satisfaction. Pt acknowledged understanding of concepts and follow up plan. Specific signs and symptoms that would indicate the need for higher level of care were discussed in detail warranting prompt ER evaluation. Rukhsana Batista APRN.RIGOBERTO Batista APRN.RIGOBERTO 08/07/2018 4:09 PM Addendum ASSESSMENT/PLAN: 1. Foot pain, right - ICD9: 729.5, ICD10: M79.671 Appears to be nail infection REST: Rest the area as much as possible. ICE: Apply ice for 15 minutes every hour. Do not apply ice directly to the skin. Cover the area with a thin towel or clothing and apply the ice on top of that. ELEVATE: Elevate the area as much as possible to control swelling. See your doctor if not improving Tylenol (generic acetaminophen) 500 mg-2 tabs every 8 hrs. as needed for fever and aches Ibuprofen 600 mg (3-200mg tablets) every 6 hours - XR FOOT GENERAL 3V AP/LAT/OBL RT - Xrays were completed and interpreted by the radiologist as negative for acute bony abnormality. Keflex 500 mg tid for 7 days Follow up with PCP or Dr. Geogre for any further problems, or ER if suddenly worsening Referring Provider: SELF [200] Allergies As of Date: 08/07/2018 Noted Allergy Reaction PERCOCET (OXYCODONE-ACETAMINOPHEN)11/15/2016 8 - GI Upset WELLBUTRIN (BUPROPION HCL) 12/13/2016 4 - Hives Date Reviewed: 08/07/2018 Reviewed by: Janet Stevens Ma - Fully Assessed Reason for Visit: Toe Pain (Toe) [761] Cmt: Right pinky toe Primary Visit Diagnosis:Foot pain, right [M79.671] Order(s):XR FOOT GENERAL 3V AP/LAT/OBL RT [[id number]] Order #: [id number]. #:[id number] cephALEXin (KEFLEX) 500 mg capsuleTake 1 capsule by mouth three times daily for 7 days.Disp: 21 capsuleRfl: 0 Prescriptions as of 08/07/2018 Sig: LISDEXAMFETAMINE 10 MG CAPSULE Take 1-2 capsules by mouth on* LISDEXAMFETAMINE 10 MG CAPSULE Take 1-2 capsules by mouth on* LISDEXAMFETAMINE 10 MG CAPSULE Take 1-2 capsules by mouth on* LISDEXAMFETAMINE 20 MG CAPSULE Take 1 capsule by mouth once * LISDEXAMFETAMINE 20 MG CAPSULE Take 1 capsule by mouth once * LISDEXAMFETAMINE 20 MG CAPSULE Take 1 capsule by mouth once * CEPHALEXIN 500 MG CAPSULE Take 1 capsule by mouth three* Problem List As Of Date 08/07/2018 Noted Resolved Anxiety [F41.9] INVALID FOR* Migraines [G43.909] INVALID FOR* ADD (attention deficit disorder) without hypera* Other instructions from your clinician: ASSESSMENT/PLAN: 1. Foot pain, right - ICD9: 729.5, ICD10: M79.671 Appears to be nail infection REST: Rest the area as much as possible. ICE: Apply ice for 15 minutes every hour. Do not apply ice directly to the skin. Cover the area with a thin towel or clothing and apply the ice on top of that. ELEVATE: Elevate the area as much as possible to control swelling. See your doctor if not improving Tylenol (generic acetaminophen) 500 mg-2 tabs every 8 hrs. as needed for fever and aches Ibuprofen 600 mg (3-200mg tablets) every 6 hours - XR FOOT GENERAL 3V AP/LAT/OBL RT - Xrays were completed and interpreted by the radiologist as negative for acute bony abnormality. Keflex 500 mg tid for 7 days Follow up with PCP or Dr. George for any further problems, or ER if suddenly worsening Prescriptions ordered this encounter Disp Refills Start End CEPHALEXIN 500 MG CAPSULE 21 c* 0 08/07/2018 08/14/2018 Route: ORAL Sig: Take 1 capsule by mouth three times daily for 7 days. Encounter Status:Closed by RUKHSANA BATISTA CNP on 08/07/18 CBC Collected: 07/07/2018 Status: F Source: [place] 12:25 PM [facility] [place] REPOSITORY TYPE CODE TESTS RESULT OUT OF REFERENCE UNITS RANGE LAB WBC 3.70-11.00 k/uL WBC 6.70 LAB RBC 3.90-5.20 m/uL RBC 4.24 LAB HGB 11.5-15.5 g/dL Hemoglobin 12.0 LAB HCT 36.0-46.0 % Hematocrit 39.0 LAB MCV 80.0-100.0 fL MCV 92.0 LAB MCH 26.0-34.0 pG MCH 28.3 LAB MCHC 30.5-36.0 g/dL MCHC 30.8 LAB RDWCV 11.5-15.0 % RDW-CV 14.1 LAB PLTCT 150-400 k/uL Platelet Count 253 LAB MPV 9.0-12.7 fL MPV 11.1 LAB ABSNUC <0.01 k/uL Absolute nRBC <0.01 Performed By: #### CBC, CMP, LIPNF, FERR, IRON #### [facility] [address] [place], [place] [address] COMP METABOLIC PANEL Collected: 07/07/2018 Status: F Source: [place] 12:25 PM [facility] REPOSITORY TYPE CODE TESTS RESULT OUT OF REFERENCE UNITS RANGE LAB TP 6.3-8.0 g/dL Protein, Total 7.5 LAB ALB 3.9-4.9 g/dL Albumin 4.3 LAB CA 8.5-10.2 mg/dL Calcium, Total 9.2 LAB TBIL 0.2-1.3 mg/dL Bilirubin, Total 0.9 LAB ALKP 32-117 U/L Alkaline Phosphatase 77 LAB AST 13-35 U/L AST 27 LAB GLU 74-99 mg/dL Low Glucose 70 Result Comment: The [place] Diabetes Association (ADA) provides guidance for cutoff values for fasting glucose and random glucose. The ADA defines fasting as no caloric intake for at least 8 hours. Fas ting plasma glucose results between 100 to 125 mg/dL indicate increased risk for diabetes (prediabetes). Fasting plasma glucose results greater than or equal to 126 mg/dL meet the criteria for diagnosis of diabetes. In the absence of unequivocal hyperglycemia, results should be confirmed by repeat testing. In a patient with classic symptoms of hyperglycemia or hyperglycemic crisis, random plasma glucose results greater than or equal to 200 mg/dL meet the criteria for diagnosis of diabetes. Reference: Standards of Medical Care in Diabetes 2016, [place] Diabetes Association. Diabetes Care. 2016.39(Suppl 1). LAB BUN 7-21 mg/dL BUN 12 LAB CRET 0.58-0.96 mg/dL Creatinine 0.58 LAB NA 136-144 mmol/L Sodium 137 LAB K 3.7-5.1 mmol/L Potassium 4.1 LAB CL 97-105 mmol/L Chloride 101 LAB CO2 22-30 mmol/L CO2 24 LAB AGAP 9-18 mmol/L Anion Gap 12 LAB ALT 7-38 U/L ALT 18 LAB GFRAA eGFR- Amer. >60 LAB GFRNAA . eGFR-All Other Races >60 Result Comment: eGFR (Estimated GFR) Units of measure: mL/min/1.73 meters squared eGFR is derived from the reexpressed MDRD Study equation using the following parameters: serum creatinine, age, gender and race. The creatinine assay has been calibrated to be traceable to IDMS. An eGFR <60 mL/min/1.73m2 for >3 months is consistent with chronic kidney disease. Refer to KDOQI guidelines for clinical interpretation. In patients with unstable renal function, e.g. those with acute kidney injury, the eGFR may not accurately reflect actual GFR. Performed By: #### CBC, CMP, LIPNF, FERR, IRON #### [facility] [address] [place], [place] [address] LIPID PANEL, NONFAST Collected: 07/07/2018 Status: F Source: [place] 12:25 PM [facility] REPOSITORY TYPE CODE TESTS RESULT OUT OF REFERENCE UNITS RANGE LAB CHOLNF <200 mg/dL Total Cholesterol NF 182 Result Comment: <200 mg/dL, Desirable 200-239 mg/dL, Borderline high >239 mg/dL, High LAB TRIGNF <150 mg/dL Triglycerides, NF 92 Result Comment: <150 mg/dL, Normal 150-199 mg/dL, Borderline high 200-499 mg/dL, High >499 mg/dL, Very high LAB HDLNF >39 mg/dL HDL Cholesterol, NF 64 Result Comment: 40-59 mg/dL, Acceptable >59 mg/dL, High: Negative risk factor for coronary heart disease <40 mg/dL, Low: Positive risk factor for coronary heart disease LAB LDLNF <100 mg/dL LDL Cholesterol, High NF 100 Result Comment: <100 mg/dL, Optimal 100-129 mg/dL, Near optimal/above optimal 130-159 mg/dL, Borderline high 160-189 mg/dL, High >189 mg/dL, Very high Secondary prevention optimal LDL Cholesterol levels are recommended to be < 70 mg/dL LAB NOHDLN <130 mg/dL Non HDL Chol, 118 NF Result Comment: <130 mg/dL, Optimal 130-159 mg/dL, Near optimal/above optimal 160-189 mg/dL, Borderline high 190-219 mg/dL, High >219 mg/dL, Very high Secondary prevention optimal non HDL Cholesterol levels are recommended to be < 100 mg/dL LAB VLDLNF <30 mg/dL VLDL Cholesterol, NF 18 LAB TCHDLN <5.10 mg/dL T Chol/HDL Ratio NF 2.84 LAB LDLHDN <2.54 mg/dL LDL/HDL Ratio, NF 1.56 Result Comment: Reference: 1. National Cholesterol Education Program ATP III Guideline At-A-Glance Quick Desk Reference: National Heart, Lung, and Blood [place]. National Institutes of Health. 2001: NIH Publication No. 01-3305. 2. An International Atherosclerosis Society position paper: global recommendations for the management of dyslipidemia: executive summary, Atherosclerosis. 2014: 232(2):410-413. Performed By: #### CBC, CMP, LIPNF, FERR, IRON #### [facility] [address] [address] FERRITIN Collected: 07/07/2018 Status: F Source: [place] 12:25 PM [facility] REPOSITORY TYPE CODE TESTS RESULT OUT OF REFERENCE UNITS RANGE LAB FERR 14.7-205.1 ng/mL Low Ferritin 13.2 Performed By: #### CBC, CMP, LIPNF, FERR, IRON #### [facility] [address] [address] IRON AND TIBC Collected: 07/07/2018 Status: F Source: [place] 12:25 PM [facility] REPOSITORY TYPE CODE TESTS RESULT OUT OF REFERENCE UNITS RANGE LAB IRN 41-186 ug/dL Iron 50 LAB TIBC 232-386 ug/dL TIBC High 395 LAB SAT 15-57 % Low Transferrin Saturatn 13 Performed By: #### CBC, CMP, LIPNF, FERR, IRON #### [facility] [address] [address] PROGRESS Observed: 07/07/2018 Status: COMPLETED Source: [place] 10:56 AM [facility] REPOSITORY HNO ID: [id number] Author: Vicky Howell Service: (none) Author Type: Physician Type: Progress Notes Filed: 07/19/2018 10:22 PM Note Text: Patient presents with: Recheck: Follow up SUBJECTIVE: Carlota Arriola is a 38 year old year old lady here today for follow up appointment for review of medical conditions. Meds effective Stays active. Takes care of horse and goat. PAST MEDICAL HISTORY Diagnosis Date - ADD (attention deficit disorder) without hyperactivity - Anemia - Hx of migraines 2009 with 2nd aura w/visual changes/aphagia - Shingles 2011 right lower transverse back to abdomen Current Outpatient Prescriptions: lisdexamfetamine (VYVANSE) 20 mg capsule Take 1 capsule by mouth once daily for 30 days. lisdexamfetamine (VYVANSE) 20 mg capsule Take 1 capsule by mouth once daily for 30 days.Earliest Fill Date: 04/03/18 lisdexamfetamine (VYVANSE) 20 mg capsule Take 1 capsule by mouth once daily for 30 days. May fill on or after 06/01/2017Earliest Fill Date: 05/04/18 No current facility-administered medications for this visit. OBJECTIVE: BP 100/68 Pulse 76 Resp 20 Wt 56.2 kg (124 lb) Patient is alert, oriented times 3, no apparent distress, affect is bright, reactive. Last 5 Encounter BP Readings: Date: BP: 07/07/2018 100/68 03/03/2018 110/74 08/08/2017 100/58 04/02/2017 106/60 01/10/2017 110/80 Last 5 Encounter Wt Readings: Date: Wt: 07/07/2018 56.2 kg (124 lb) 03/03/2018 57.2 kg (126 lb) 04/02/2017 49.9 kg (110 lb) 01/10/2017 50.4 kg (111 lb 0.6 oz) 12/13/2016 49.5 kg (109 lb 0.6 oz) Heart: Regular rate, rhythm, no murmurs, gallops, rubs. Lungs: Clear to auscultation, bilaterally, breathing non labored. Ext: No cyanosis, clubbing, or edema. ASSESSMENT AND PLAN: Encounter Diagnosis ICD-10-CM 1. ADD (attention deficit disorder) without hyperactivity F98.8 lisdexamfetamine (VYVANSE) 10 mg capsule lisdexamfetamine (VYVANSE) 10 mg capsule lisdexamfetamine (VYVANSE) 10 mg capsule 2. Migraine with aura and without status migrainosus, not intractable G43.109 improved when taking Vyvanse; exacerbated with periods 3. Anxiety F41.9 controlled well when taking Vyvanse 4. Encounter for long-term current use of medication Z79.899 COMP METABOLIC PANEL CBC LIPID PANEL, NONFASTING 5. Screening, lipid Z13.220 LIPID PANEL, NONFASTING 6. Low ferritin R79.0 CBC IRON + TIBC FERRITIN BLD Above issues addressed with patient. Patient involved in shared decision making for management of medical issues. History and medications reviewed. Epic updated as needed Refills taken care of and meds adjusted as indicated after reviewed history, exam and labs. Health Maintenance reviewed. Updated record and/or ordered tests as recorded. Further evaluation and treatment as indicated. Encouraged on efforts at healthy diet and regular exercise and adequate sleep. Stable with control of ADHD. No signs of diversion or abuse of medication(s); no adverse effects. Continue present management. [facility] website checked and validated. All prescriptions have been APPROPRIATELY filled. No suspicious activity was identified. 07/07/2018 by Vicky Howell MD The majority of the visit was spent counseling and/or coordinating care for the patient. Rpwu-yb-rzee time was at least 20 minutes. Vicky Howell MD CNOV Observed: 07/07/2018 Status: COMPLETED Source: [place] 10:00 AM [facility] REPOSITORY Office Visit (INTMWS) CARLOTA ARRIOLA ([id number]) 1980 F Date Time Provider Department 07/07/18 10:00 AM VICKY HOWELL INTMWS During your visit today, we recorded the following information about you: Pulse Respiration Blood pressure Weight 76/minute 20/minute 100/68 56.2 kg Vicky Howell MD 07/19/2018 10:22 PM Signed Patient presents with: Recheck: Follow up SUBJECTIVE: Carlota Arriola is a 38 year old year old lady here today for follow up appointment for review of medical conditions. Meds effective Stays active. Takes care of horse and goat. PAST MEDICAL HISTORY Diagnosis Date - ADD (attention deficit disorder) without hyperactivity - Anemia - Hx of migraines 2009 with 2nd aura w/visual changes/aphagia - Shingles 2011 right lower transverse back to abdomen Current Outpatient Prescriptions: lisdexamfetamine (VYVANSE) 20 mg capsule Take 1 capsule by mouth once daily for 30 days. lisdexamfetamine (VYVANSE) 20 mg capsule Take 1 capsule by mouth once daily for 30 days.Earliest Fill Date: 04/03/18 lisdexamfetamine (VYVANSE) 20 mg capsule Take 1 capsule by mouth once daily for 30 days. May fill on or after 06/01/2017Earliest Fill Date: 05/04/18 No current facility-administered medications for this visit. OBJECTIVE: BP 100/68 Pulse 76 Resp 20 Wt 56.2 kg (124 lb) Patient is alert, oriented times 3, no apparent distress, affect is bright, reactive. Last 5 Encounter BP Readings: Date: BP: 07/07/2018 100/68 03/03/2018 110/74 08/08/2017 100/58 04/02/2017 106/60 01/10/2017 110/80 Last 5 Encounter Wt Readings: Date: Wt: 07/07/2018 56.2 kg (124 lb) 03/03/2018 57.2 kg (126 lb) 04/02/2017 49.9 kg (110 lb) 01/10/2017 50.4 kg (111 lb 0.6 oz) 12/13/2016 49.5 kg (109 lb 0.6 oz) Heart: Regular rate, rhythm, no murmurs, gallops, rubs. Lungs: Clear to auscultation, bilaterally, breathing non labored. Ext: No cyanosis, clubbing, or edema. ASSESSMENT AND PLAN: Encounter Diagnosis ICD-10-CM 1. ADD (attention deficit disorder) without hyperactivity F98.8 lisdexamfetamine (VYVANSE) 10 mg capsule lisdexamfetamine (VYVANSE) 10 mg capsule lisdexamfetamine (VYVANSE) 10 mg capsule 2. Migraine with aura and without status migrainosus, not intractable G43.109 improved when taking Vyvanse; exacerbated with periods 3. Anxiety F41.9 controlled well when taking Vyvanse 4. Encounter for long-term current use of medication Z79.899 COMP METABOLIC PANEL CBC LIPID PANEL, NONFASTING 5. Screening, lipid Z13.220 LIPID PANEL, NONFASTING 6. Low ferritin R79.0 CBC IRON + TIBC FERRITIN BLD Above issues addressed with patient. Patient involved in shared decision making for management of medical issues. History and medications reviewed. Epic updated as needed Refills taken care of and meds adjusted as indicated after reviewed history, exam and labs. Health Maintenance reviewed. Updated record and/or ordered tests as recorded. Further evaluation and treatment as indicated. Encouraged on efforts at healthy diet and regular exercise and adequate sleep. Stable with control of ADHD. No signs of diversion or abuse of medication(s); no adverse effects. Continue present management. PDMP website checked and validated. All prescriptions have been APPROPRIATELY filled. No suspicious activity was identified. 07/07/2018 by Vicky Howell MD The majority of the visit was spent counseling and/or coordinating care for the patient. [id number]-pu-tvzv time was at least 20 minutes. Vicky Howell MD Referring Provider: SELF [200] Allergies As of Date: 07/07/2018 Noted Allergy Reaction PERCOCET (OXYCODONE-ACETAMINOPHEN)11/15/2016 8 - GI Upset WELLBUTRIN (BUPROPION HCL) 12/13/2016 4 - Hives Date Reviewed: 07/07/2018 Reviewed by: Aleena Danielson LPN - Fully Assessed Reason for Visit: Recheck [92] Cmt: Follow up Primary Visit Diagnosis:ADD (attention deficit disorder) without hyperactivity [F98.8] Other Visit Diagnoses:Migraine with aura and without status migrainosus, not intractable [G43.109] Comment:improved when taking Vyvanse; exacerbated with periods Anxiety [F41.9] Comment:controlled well when taking Vyvanse Encounter for long-term current use of medication [Z79.899] Screening, lipid [Z13.220] Low ferritin [R79.0] Order(s):lisdexamfetamine (VYVANSE) 10 mg capsuleTake 1-2 capsules by mouth once daily for 30 days. As directedDisp: 60 capsuleRfl: 0 [START ON 08/06/2018] lisdexamfetamine (VYVANSE) 10 mg capsuleTake 1-2 capsules by mouth once daily for 30 days. As directed Earliest Fill Date: 08/06/18Disp: 60 capsuleRfl: 0 [START ON 09/05/2018] lisdexamfetamine (VYVANSE) 10 mg capsuleTake 1-2 capsules by mouth once daily for 30 days. As directed Earliest Fill Date: 09/05/18Disp: 60 capsuleRfl: 0 COMP METABOLIC PANEL [SQCMP] Order #: [id number] FUTURE CBC [SQCBC] Order #: [id number] FUTURE IRON + TIBC [SQIRON] Order #: [id number] FUTURE FERRITIN BLD [SQFERR] Order #: [id number] FUTURE LIPID PANEL, NONFASTING [SQLIPNF] Order #: [id number] FUTURE Prescriptions as of 07/07/2018 Sig: LISDEXAMFETAMINE 10 MG CAPSULE Take 1-2 capsules by mouth on* LISDEXAMFETAMINE 10 MG CAPSULE Take 1-2 capsules by mouth on* LISDEXAMFETAMINE 10 MG CAPSULE Take 1-2 capsules by mouth on* LISDEXAMFETAMINE 20 MG CAPSULE Take 1 capsule by mouth once * LISDEXAMFETAMINE 20 MG CAPSULE Take 1 capsule by mouth once * LISDEXAMFETAMINE 20 MG CAPSULE Take 1 capsule by mouth once * Problem List As Of Date 07/07/2018 Noted Resolved Anxiety [F41.9] INVALID FOR* Migraines [G43.909] INVALID FOR* ADD (attention deficit disorder) without hypera* Prescriptions ordered this encounter Disp Refills Start End LISDEXAMFETAMINE 10 MG CAPSULE 60 c* 0 07/07/2018 08/06/2018 Class: Print RX Route: ORAL Sig: Take 1-2 capsules by mouth once daily for 30 days. As directed LISDEXAMFETAMINE 10 MG CAPSULE 60 c* 0 08/06/2018 09/05/2018 Class: Print RX Route: ORAL Sig: Take 1-2 capsules by mouth once daily for 30 days. As directed Earliest Fill Date: 08/06/18 LISDEXAMFETAMINE 10 MG CAPSULE 60 c* 0 09/05/2018 10/05/2018 Class: Print RX Route: ORAL Sig: Take 1-2 capsules by mouth once daily for 30 days. As directed Earliest Fill Date: 09/05/18 Disposition: Return in about 6 months (around 01/04/2019) for 6 months follow up. Follow-up and Disposition History Recorded Encounter Status:Closed by VICKY HOWELL MD on 07/19/18 CNOV Observed: 06/26/2018 Status: COMPLETED Source: [place] 1:40 PM [facility] REPOSITORY Office Visit (INTMWS) CARLOTA ARRIOLA ([id number]) 1980 F Date Time Provider Department 06/26/18 1:40 PM VICKY HOWELL INTMWS During your visit today, we recorded the following information about you: Referring Provider: SELF [200] Allergies As of Date: 06/26/2018 Noted Allergy Reaction PERCOCET (OXYCODONE-ACETAMINOPHEN)11/15/2016 8 - GI Upset WELLBUTRIN (BUPROPION HCL) 12/13/2016 4 - Hives Date Reviewed: 03/03/2018 Reviewed by: Billie Rajput) YOLANDE Miguel - Fully Assessed Reason for Visit: Physical [83] Primary Visit Diagnosis:Patient left without being seen [Z53.21] Problem List As Of Date 06/26/2018 Noted Resolved Anxiety [F41.9] INVALID FOR* Migraines [G43.909] INVALID FOR* ADD (attention deficit disorder) [F98.8] INVALID FOR* ADD (attention deficit disorder) without hypera* Encounter Status:Closed by VICKY HOWELL MD on 07/10/18 PROGRESS Observed: 03/03/2018 Status: COMPLETED Source: [place] 11:26 AM [facility] REPOSITORY HNO ID: [id number] Author: Hilda Day (Cns) Service: (none) Author Type: Nurse Specialist Type: Progress Notes Filed: 03/03/2018 12:12 PM Note Text: OUTPATIENT VISIT DATE March 03, 2018 OUTPATIENT VISIT TYPE ESTABLISHED PRIMARY CARE PHYSICIAN: Vicky Howell MD CHIEF COMPLAINT: Patient presents with: Recheck: refills History of Present Illness: Carlota Arriola is a 38 year old female who was last seen 03/2017 by Vicky Howell MD. She has been seen in the past for ACTIVE PROBLEM LIST Anxiety Migraines Add (Attention Deficit Disorder) Add (Attention Deficit Disorder) Without Hyperactivity Since the last visit, she states that she has intermittently used ADHD medications. These have been helpful when used. She feels focus and attention is improved when she does take medication. She has not been using medication daily. She notes that she feels more arora than usual. Notes increased irritability. Her has mentioned this to her. She reports that her customer support specialist advised she looked like she might be going into menopause-type changes with her last exam. She has upcoming appointment. She is without chest pain palpitations since last here. No recent hospital or ED visits. No new medical problems or medications. Able to obtain medications. No problems with taking medications or note side effects. PAST MEDICAL HISTORY Diagnosis Date - ADD (attention deficit disorder) without hyperactivity - Anemia - Hx of migraines 2009 with 2nd aura w/visual changes/aphagia - Shingles 2011 right lower transverse back to abdomen PAST SURGICAL HISTORY Procedure Laterality Date - CHG DELIVERY 2006, 2009, 2012 - TONSILLECTOMY AND ADENOIDECTOMY HX young age FAMILY HISTORY Problem Relation Age of Onset - parathyroidectomy [Other] [OTHER] Mother hypercalcemia - HTN [Other] [OTHER] Father - depression [Other] [OTHER] Father mild depression - Breast Cancer Maternal Grandmother 79 pagets: dx and 2 weeks later - CHF [Other] [OTHER] Paternal Grandmother - parkinsons [Other] [OTHER] Paternal Grandmother - DM II [Other] [OTHER] Paternal Grandmother - Depression [Other] [OTHER] Paternal Grandmother - Ischemic Heart Disease Paternal Grandfather HI - Heart Maternal Grandfather early 70's - mental illness [Other] [OTHER] Maternal Grandfather - depression [Other] [OTHER] Sister Social History Substance Use Topics - Smoking status: Never Smoker - Smokeless tobacco: Never Used - Alcohol use Yes Comment: occasional couple times per year; holidays. ALLERGIES: ALLERGIES Allergen Reactions - Percocet [Oxycodone* GI Upset - Wellbutrin [Bupropi* Hives MEDICATIONS lisdexamfetamine (VYVANSE) 20 mg capsule Take 1 capsule by mouth once daily for 30 days. [START ON 04/03/2018] lisdexamfetamine (VYVANSE) 20 mg capsule Take 1 capsule by mouth once daily for 30 days.Earliest Fill Date: 6/15/18 [START ON 05/04/2018] lisdexamfetamine (VYVANSE) 20 mg capsule Take 1 capsule by mouth once daily for 30 days. May fill on or after 06/01/2017Earliest Fill Date: 05/04/18 REVIEW OF SYSTEMS: GENERAL: Negative for: Weight loss or gain, Fever or Chills, Weakness and Sleep difficulties. Physical Examination: BP 110/74 Pulse 72 Resp 16 Wt 126 lb (57.2kg) Extended Vitals not filed for this encounter. General appearance: Well appearing, alert, in no acute distress, well-hydrated, well nourished. Skin: Skin color, texture, turgor normal, no suspicious rashes or lesions Head: Normocephalic, no masses, lesions, tenderness or abnormalities Eyes: Anicteric sclera. Pupils are equally round and reactive to light. Extraocular movements are intact. Ears: External ears normal, canals clear, TM's normal Nose/Sinuses: Nares normal, septum midline, mucosa normal, no drainage or sinus tenderness Oropharynx: Lips, mucosa, and tongue normal, teeth and gums normal, oropharynx normal Neck: Supple, no adenopathy; thyroid symmetric, normal size, no bruits Back: Normal exam Lungs: Lungs clear to auscultation. No wheezing, rhonchi, rales Heart: RRR without murmur, gallop, or rubs. No ectopy Abdomen: Normal abdominal exam, Abdomen soft, non-tender. Bowel sounds normal. No masses, organomegaly Extremities: No deformities, edema, skin discoloration, clubbing or cyanosis. Good capillary refill. Musculoskeletal: Spine range of motion normal. Muscular strength intact, No joint swelling, deformity, or tenderness Peripheral pulses: Normal Neuro: Gait normal. Reflexes normal and symmetric. Sensation grossly intact. Reviewed chart, outside records, tests OARRS website checked and validated. All prescriptions have been APPROPRIATELY filled. No suspicious activity was identified.- 03/03/2018 by Hilda Day APRN.ASSEMBLY MECHANIC I personally interviewed, confirmed and edited the above information if obtained by others. TESTING: Glucose (mg/dL) Date Value 01/10/2017 81 Potassium (mmol/L) Date Value 01/10/2017 3.9 Sodium (mmol/L) Date Value 01/10/2017 138 Chloride (mmol/L) Date Value 01/10/2017 101 CO2 (mmol/L) Date Value 01/10/2017 26 Creatinine (mg/dL) Date Value 01/10/2017 0.59 BUN (mg/dL) Date Value 01/10/2017 14 Anion Gap (mmol/L) Date Value 01/10/2017 11 Calcium (mg/dL) Date Value 01/10/2017 9.0 Glucose (mg/dL) Date Value 01/10/2017 81 Potassium (mmol/L) Date Value 01/10/2017 3.9 Sodium (mmol/L) Date Value 01/10/2017 138 Chloride (mmol/L) Date Value 01/10/2017 101 CO2 (mmol/L) Date Value 01/10/2017 26 Creatinine (mg/dL) Date Value 01/10/2017 0.59 BUN (mg/dL) Date Value 01/10/2017 14 Anion Gap (mmol/L) Date Value 01/10/2017 11 Calcium (mg/dL) Date Value 01/10/2017 9.0 Protein, Total (g/dL) Date Value 01/10/2017 7.2 Albumin (g/dL) Date Value 01/10/2017 4.3 Bilirubin, Total (mg/dL) Date Value 01/10/2017 0.9 Alkaline Phosphatase (U/L) Date Value 01/10/2017 64 AST (U/L) Date Value 01/10/2017 20 ALT (U/L) Date Value 01/10/2017 23 Hemoglobin (g/dL) Date Value 01/10/2017 11.8 Hematocrit (%) Date Value 01/10/2017 37.0 WBC (k/uL) Date Value 01/10/2017 5.12 Cholesterol, Total (mg/dL) Date Value 01/07/2015 178 HDL Cholesterol (mg/dL) Date Value 01/07/2015 55 LDL Cholesterol (mg/dL) Date Value 01/07/2015 108 Triglyceride (mg/dL) Date Value 01/07/2015 75 No results found for: HBA1C Ejection Fraction: No results found IMPRESSION: Ms. Arriola is a 38 year old Woman presents for follow-up regarding ADD. After my examination and review of data, I make the following recommendations. PLAN AND RECOMMENDATIONS: 1. ADD (attention deficit disorder) without hyperactivity - ICD9: 314.00, ICD10: F98.8 Has not been consistently taking medication. Has noted increased irritability, she wonders if some component of PMD or depression versus early menopause. Recommend taking ADD medicine consistently for a period of time. Discussed keeping a log of symptoms and timing. May help excude/include PMD She'll be seeing her customer support specialist next month so recommend discussing with her as well any perimenopausal type changes. May be some component of anxiety or depression contributing - LISDEXAMFETAMINE 20 MG CAPSULE - LISDEXAMFETAMINE 20 MG CAPSULE - LISDEXAMFETAMINE 20 MG CAPSULE Advised to go to ER if develops chest pain, shortness of breath, or severe worsening of symptoms. Discussed risks, benefits, alternatives, and potential side effects of medications. Ms. Arriola expressed understanding and agreed with the plan. Hilda Day APRN.ASSEMBLY MECHANIC CNOV Observed: 03/03/2018 Status: COMPLETED Source: [place] 11:00 AM [facility] REPOSITORY Office Visit (INTMWS) CARLOTA ARRIOLA ([id number]) 1980 F Date Time Provider Department 03/03/18 11:00 AM HILDA DAY (MAGGIE) JULIA During your visit today, we recorded the following information about you: Pulse Respiration Blood pressure Weight 72/minute 16/minute 110/74 57.2 kg Hilda Day APRN.CNS 03/03/2018 12:12 PM Signed OUTPATIENT VISIT DATE March 03, 2018 OUTPATIENT VISIT TYPE ESTABLISHED PRIMARY CARE PHYSICIAN: Vicky Howell MD CHIEF COMPLAINT: Patient presents with: Recheck: refills History of Present Illness: Carlota Arriola is a 38 year old female who was last seen 03/2017 by Vicky Howell MD. She has been seen in the past for ACTIVE PROBLEM LIST Anxiety Migraines Add (Attention Deficit Disorder) Add (Attention Deficit Disorder) Without Hyperactivity Since the last visit, she states that she has intermittently used ADHD medications. These have been helpful when used. She feels focus and attention is improved when she does take medication. She has not been using medication daily. She notes that she feels more arora than usual. Notes increased irritability. Her has mentioned this to her. She reports that her customer support specialist advised she looked like she might be going into menopause-type changes with her last exam. She has upcoming appointment. She is without chest pain palpitations since last here. No recent hospital or ED visits. No new medical problems or medications. Able to obtain medications. No problems with taking medications or note side effects. PAST MEDICAL HISTORY Diagnosis Date - ADD (attention deficit disorder) without hyperactivity - Anemia - Hx of migraines 2009 with 2nd aura w/visual changes/aphagia - Shingles 2011 right lower transverse back to abdomen PAST SURGICAL HISTORY Procedure Laterality Date - CHG DELIVERY 2006, 2009, 2012 - TONSILLECTOMY AND ADENOIDECTOMY HX young age FAMILY HISTORY Problem Relation Age of Onset - parathyroidectomy [Other] [OTHER] Mother hypercalcemia - HTN [Other] [OTHER] Father - depression [Other] [OTHER] Father mild depression - Breast Cancer Maternal Grandmother 79 pagets: dx and 2 weeks later - CHF [Other] [OTHER] Paternal Grandmother - parkinsons [Other] [OTHER] Paternal Grandmother - DM II [Other] [OTHER] Paternal Grandmother - Depression [Other] [OTHER] Paternal Grandmother - Ischemic Heart Disease Paternal Grandfather HI - Heart Maternal Grandfather early 70's - mental illness [Other] [OTHER] Maternal Grandfather - depression [Other] [OTHER] Sister Social History Substance Use Topics - Smoking status: Never Smoker - Smokeless tobacco: Never Used - Alcohol use Yes Comment: occasional couple times per year; holidays. ALLERGIES: ALLERGIES Allergen Reactions - Percocet [Oxycodone* GI Upset - Wellbutrin [Bupropi* Hives MEDICATIONS lisdexamfetamine (VYVANSE) 20 mg capsule Take 1 capsule by mouth once daily for 30 days. [START ON 04/03/2018] lisdexamfetamine (VYVANSE) 20 mg capsule Take 1 capsule by mouth once daily for 30 days.Earliest Fill Date: 04/03/18 [START ON 05/04/2018] lisdexamfetamine (VYVANSE) 20 mg capsule Take 1 capsule by mouth once daily for 30 days. May fill on or after 06/01/2017Earliest Fill Date: 05/04/18 REVIEW OF SYSTEMS: GENERAL: Negative for: Weight loss or gain, Fever or Chills, Weakness and Sleep difficulties. Physical Examination: BP 110/74 Pulse 72 Resp 16 Wt 126 lb (57.2kg) Extended Vitals not filed for this encounter. General appearance: Well appearing, alert, in no acute distress, well-hydrated, well nourished. Skin: Skin color, texture, turgor normal, no suspicious rashes or lesions Head: Normocephalic, no masses, lesions, tenderness or abnormalities Eyes: Anicteric sclera. Pupils are equally round and reactive to light. Extraocular movements are intact. Ears: External ears normal, canals clear, TM's normal Nose/Sinuses: Nares normal, septum midline, mucosa normal, no drainage or sinus tenderness Oropharynx: Lips, mucosa, and tongue normal, teeth and gums normal, oropharynx normal Neck: Supple, no adenopathy; thyroid symmetric, normal size, no bruits Back: Normal exam Lungs: Lungs clear to auscultation. No wheezing, rhonchi, rales Heart: RRR without murmur, gallop, or rubs. No ectopy Abdomen: Normal abdominal exam, Abdomen soft, non-tender. Bowel sounds normal. No masses, organomegaly Extremities: No deformities, edema, skin discoloration, clubbing or cyanosis. Good capillary refill. Musculoskeletal: Spine range of motion normal. Muscular strength intact, No joint swelling, deformity, or tenderness Peripheral pulses: Normal Neuro: Gait normal. Reflexes normal and symmetric. Sensation grossly intact. Reviewed chart, outside records, tests [employer] website checked and validated. All prescriptions have been APPROPRIATELY filled. No suspicious activity was identified.- 03/03/2018 by Hilda Day APRN.ASSEMBLY MECHANIC I personally interviewed, confirmed and edited the above information if obtained by others. TESTING: Glucose (mg/dL) Date Value 01/10/2017 81 Potassium (mmol/L) Date Value 01/10/2017 3.9 Sodium (mmol/L) Date Value 01/10/2017 138 Chloride (mmol/L) Date Value 01/10/2017 101 CO2 (mmol/L) Date Value 01/10/2017 26 Creatinine (mg/dL) Date Value 01/10/2017 0.59 BUN (mg/dL) Date Value 01/10/2017 14 Anion Gap (mmol/L) Date Value 01/10/2017 11 Calcium (mg/dL) Date Value 01/10/2017 9.0 Glucose (mg/dL) Date Value 01/10/2017 81 Potassium (mmol/L) Date Value 01/10/2017 3.9 Sodium (mmol/L) Date Value 01/10/2017 138 Chloride (mmol/L) Date Value 01/10/2017 101 CO2 (mmol/L) Date Value 01/10/2017 26 Creatinine (mg/dL) Date Value 01/10/2017 0.59 BUN (mg/dL) Date Value 01/10/2017 14 Anion Gap (mmol/L) Date Value 01/10/2017 11 Calcium (mg/dL) Date Value 01/10/2017 9.0 Protein, Total (g/dL) Date Value 01/10/2017 7.2 Albumin (g/dL) Date Value 01/10/2017 4.3 Bilirubin, Total (mg/dL) Date Value 01/10/2017 0.9 Alkaline Phosphatase (U/L) Date Value 01/10/2017 64 AST (U/L) Date Value 01/10/2017 20 ALT (U/L) Date Value 01/10/2017 23 Hemoglobin (g/dL) Date Value 01/10/2017 11.8 Hematocrit (%) Date Value 01/10/2017 37.0 WBC (k/uL) Date Value 01/10/2017 5.12 Cholesterol, Total (mg/dL) Date Value 01/07/2015 178 HDL Cholesterol (mg/dL) Date Value 01/07/2015 55 LDL Cholesterol (mg/dL) Date Value 01/07/2015 108 Triglyceride (mg/dL) Date Value 01/07/2015 75 No results found for: HBA1C Ejection Fraction: No results found IMPRESSION: Ms. Arriola is a 38 year old Woman presents for follow-up regarding ADD. After my examination and review of data, I make the following recommendations. PLAN AND RECOMMENDATIONS: 1. ADD (attention deficit disorder) without hyperactivity - ICD9: 314.00, ICD10: F98.8 Has not been consistently taking medication. Has noted increased irritability, she wonders if some component of PMD or depression versus early menopause. Recommend taking ADD medicine consistently for a period of time. Discussed keeping a log of symptoms and timing. May help excude/include PMD She'll be seeing her customer support specialist next month so recommend discussing with her as well any perimenopausal type changes. May be some component of anxiety or depression contributing - LISDEXAMFETAMINE 20 MG CAPSULE - LISDEXAMFETAMINE 20 MG CAPSULE - LISDEXAMFETAMINE 20 MG CAPSULE Advised to go to ER if develops chest pain, shortness of breath, or severe worsening of symptoms. Discussed risks, benefits, alternatives, and potential side effects of medications. Ms. Arriola expressed understanding and agreed with the plan. Hilda Day APRN.ASSEMBLY MECHANIC Referring Provider: SELF [[id number]] Allergies As of Date: 03/03/2018 Noted Allergy Reaction PERCOCET (OXYCODONE-ACETAMINOPHEN)11/15/2016 8 - GI Upset WELLBUTRIN (BUPROPION HCL) 12/13/2016 4 - Hives Date Reviewed: 03/03/2018 Reviewed by: Billie Rajput) YOLANDE Miguel - Fully Assessed Reason for Visit: Recheck [92] Cmt: refills Visit Diagnosis:ADD (attention deficit disorder) without hyperactivity [F98.8] Order(s):lisdexamfetamine (VYVANSE) 20 mg capsuleTake 1 capsule by mouth once daily for 30 days.Disp: 30 capsuleRfl: 0 [START ON 04/03/2018] lisdexamfetamine (VYVANSE) 20 mg capsuleTake 1 capsule by mouth once daily for 30 days. Earliest Fill Date: 04/03/18Disp: 30 capsuleRfl: 0 [START ON 05/04/2018] lisdexamfetamine (VYVANSE) 20 mg capsuleTake 1 capsule by mouth once daily for 30 days. May fill on or after 06/01/2017 Earliest Fill Date: 05/04/18Disp: 30 capsuleRfl: 0 Prescriptions as of 03/03/2018 Sig: LISDEXAMFETAMINE 20 MG CAPSULE Take 1 capsule by mouth once * LISDEXAMFETAMINE 20 MG CAPSULE Take 1 capsule by mouth once * LISDEXAMFETAMINE 20 MG CAPSULE Take 1 capsule by mouth once * Problem List As Of Date 03/03/2018 Noted Resolved Anxiety [F41.9] INVALID FOR* Migraines [G43.909] INVALID FOR* ADD (attention deficit disorder) [F98.8] INVALID FOR* ADD (attention deficit disorder) without hypera* Prescriptions ordered this encounter Disp Refills Start End LISDEXAMFETAMINE 20 MG CAPSULE 30 c* 0 03/03/2018 04/02/2018 Class: Print RX Route: ORAL Sig: Take 1 capsule by mouth once daily for 30 days. LISDEXAMFETAMINE 20 MG CAPSULE 30 c* 0 04/03/2018 05/03/2018 Class: Print RX Route: ORAL Sig: Take 1 capsule by mouth once daily for 30 days. Earliest Fill Date: 04/03/18 LISDEXAMFETAMINE 20 MG CAPSULE 30 c* 0 05/04/2018 06/03/2018 Class: Print RX Route: ORAL Sig: Take 1 capsule by mouth once daily for 30 days. May fill on or after 06/01/2017 Earliest Fill Date: 05/04/18 Medications Discontinued During This Encounter VYVANSE 20 mg capsule 05/19/2017 03/03/2018 Class: Historical Med Sig: as needed. Disc: Duplicate Entry lisdexamfetamine (VYVANSE) 20 mg cap* 30 c* 0 07/01/2017 03/03/2018 Class: Print RX Route: ORAL Sig: Take 1 capsule by mouth once daily for 30 days. May fill on or after 07/01/2017 Disc: Reason for discontinue is not on file. lisdexamfetamine (VYVANSE) 20 mg cap* 30 c* 0 02/17/2017 03/03/2018 Class: Print RX Route: ORAL Sig: Take 1 capsule by mouth once daily for 30 days. May fill on or after 08/18/2015 Disc: Reason for discontinue is not on file. lisdexamfetamine (VYVANSE) 20 mg cap* 30 c* 0 01/18/2017 03/03/2018 Class: Print RX Route: ORAL Sig: Take 1 capsule by mouth once daily for 30 days. May fill on or after 08/18/2015 Disc: Reason for discontinue is not on file. lisdexamfetamine (VYVANSE) 20 mg cap* 30 c* 0 05/02/2017 03/03/2018 Class: Print RX Route: ORAL Sig: Take 1 capsule by mouth once daily for 30 days. May fill on or after May 02, 2017 Disc: Reason for discontinue is not on file. lisdexamfetamine (VYVANSE) 20 mg cap* 30 c* 0 06/01/2017 03/03/2018 Class: Print RX Route: ORAL Sig: Take 1 capsule by mouth once daily for 30 days. May fill on or after 06/01/2017 Disc: Reason for discontinue is not on file. Encounter Status:Closed by HILDA MÉNDEZ on 03/03/18 ALLERGIES ALLERGIES DATE TYPE / CODE NAME / CODE REACTION SEVERITY SOURCE 12/13/2016 DRUG BUPROPION HCL HIVES [facility] INGREDI/419 [facility] [id number](SNOM Repository ED CT) 11/15/2016 DRUG/[id number] OXYCODONE-ACETAM GI UPSET [facility] 003(SNOMED INOPHEN [address] [place] [address]) Repository ENCOUNTERS ENCOUNTERS ADMIT/DISCHARGE ACCOUNT ADMITTING ENCOUNTER LOCATION SOURCE NUMBER CLASS 10/06/2018/10/07/20 [id number] Ambulatory [address] Repository 09/30/2018 [id number] Ambulatory [facility] ing:WOBLAB Repository 09/01/2018/09/01/20 [id number] Ambulatory [address] Repository 08/07/2018/08/07/20 [id number] Ambulatory [address] Repository 08/07/2018/08/10/20 [id number] Ambulatory [address] Repository 07/07/2018/07/08/20 [id number] Ambulatory [address] Repository 07/07/2018/07/20/20 [id number] Ambulatory [address] Repository 06/26/2018/07/13/20 [id number] Ambulatory [address] Repository 03/03/2018/03/04/20 [id number] Ambulatory [facility] [address] [place] Repository PAYERS PAYERS ENCOUNTER GUARANTOR PAYER SUBSCRIBER SOURCE 09/30/2018 Laz Arriola Primary Laz Garcia [id number] [facility] Insurance:MEDICAL IIIDOB: [address] [place] [address] [id number]: Repository [id number]: [phone] [id number] [phone] () Date:[id number] [place] [id number]: 09/30/2018 Secondary NOT GIVENNIA Garcia Insurance:SELF PAY [facility] Number: Effective Repository Date:2018-09-30
--- OUTSIDE RECORDS SUMMARY | 2018-11-16 20:40 | XMS RPT_ITS | Clinical Summary ---
:1980 Author Organization [facility] Address [address] [place] [address] Phone Care Team Providers Name Role Phone Pola Alba MD Unavailable Conditions or Problems Problem Name Problem Onset Status Entry Provider Comment Standard Annotate Code Date Date Description Continuous [id number] Active Pola Cuellar Periumbilical periumbilical (SNOMED CT) Parth pain abdominal pain Medications Medication Instructions Start Date Stop Date Generic Name NDC Provider Observed no known medications at Medications Administered No information available. Allergies, Adverse Reactions, Alerts Observed no known allergies at Results Date Name Value Unit Range Flag Description Office Visit: abd pain possible hernia FALLRSKASSES No Fall risk assessment Office Visit: Follow up CT scan NKMED T Documentation of current medications (procedure) MEDS REVIEW Done Documentation of current medications (procedure) ORALTOBACUSE Never Tobacco smoking status NHIS SMOK STATUS Never smoker Tobacco use [facility] Plan of Care Type Date Detail Pending order CT Abdomen/pelvis; with contrast Procedures No information available. Vital Signs Date Name Value Unit Description BMI (Body Mass Index) 21.35 kg/m2 Body Mass Index [Ratio] BP Diastolic 70 mm[Hg] blood pressure, diastolic - 8462-4 BP Systolic 104 mm[Hg] blood pressure, systolic - 8480-6 Heart Rate 82 /min pulse rate E&M - 8867-4 Height 61 [in_us] height E&M - 8302-2 Respiratory Rate 16 /min respiratory rate E&M - 9279-1 Weight Measured 113 [lb_av] weight E&M - 3141-9
--- OUTSIDE RECORDS SUMMARY | 2018-11-16 20:40 | XMS RPT_ITS | Clinical Summary ---
:1980 Author Organization [facility] Address [address] [facility] [place] [address] Phone Care Team Providers Name Role Phone Pola Alba MD Unavailable Conditions or Problems Problem Name Problem Onset Status Entry Provider Comment Standard Annotate Code Date Date Description Continuous [id number] Active Pola Cuellar Periumbilical periumbilical (SNOMED CT) Parth pain abdominal pain MD Medications Medication Instructions Start Date Stop Date Generic Name NDC Provider Observed no known medications at Medications Administered No information available. Allergies, Adverse Reactions, Alerts Observed no known allergies at Results Date Name Value Unit Range Flag Description Office Visit: abd pain possible hernia MEDS REVIEW Done Documentation of current medications (procedure) NKMED T Documentation of current medications (procedure) FALLRSKASSES No Fall risk assessment ORALTOBACUSE Never Tobacco smoking status NHIS SMOK STATUS Never smoker Tobacco use [facility] Plan of Care Type Date Detail Appointment 09:30 AM Pola Alba MD, [address] [facility] [address], [place] [address], [place], [address], Appointment 01:40 PM Pola Alba MD, [address] [facility], [address], [address], Pending order CT Abdomen/pelvis; with contrast Procedures [...]
--- OUTSIDE RECORDS SUMMARY | 2018-11-16 20:40 | XMS RPT_ITS | Clinical Summary ---
:1980 Author Organization [facility] Address [address] [place] [address] Phone Care Team Providers Name Role Phone Pola Alba MD Unavailable Conditions or Problems Problem Name Problem Onset Status Entry Provider Comment Standard Annotate Code Date Date Description Continuous [id number] Active Pola Cuellar Periumbilical periumbilical (SNOMED CT) [...] NHIS SMOK STATUS Never smoker Tobacco use [facility] Plan of Care Type Date Detail Pending [...]
== END ==
PROVIDERS: Visit Provider Obstetrics & Gynecology
DX: N90.89 Other specified noninflammatory disorders of vulva and perineum (principal); Z12.4 Encounter for screening for malignant neoplasm of cervix
CPT/HCPCS: 36415; 86695; 86696; 88175; G0145